=== PATIENT | female | born 1970 | race Caucasian/White ===

== ENCOUNTER 2016-08-21 11:04 | Emergency (ER) | payer MEDICAID, OTHER ==
[2016-08-21] MEDS ORDERED: LORazepam 2 MG/ML MDV IM ONE (11:17)
[2016-08-21] MEDS ORDERED: LORazepam 1 MG Tab PO ONE (11:26)
[2016-08-21] MEDS ORDERED: Promethazine 25 MG/ML SDV IM ONE (11:37)
[2016-08-21 11:55] VITALS: BP 191/116
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
== END 2016-08-21 12:21 | disposition home or self-care (01) ==
LOC: LL.ED 11:04
DX: F41.0 Panic disorder [episodic paroxysmal anxiety] (principal); I10 Essential (primary) hypertension; K21.9 Gastro-esophageal reflux disease without esophagitis; M19.90 Unspecified osteoarthritis, unspecified site; F32.9 Major depressive disorder, single episode, unspecified; F17.210 Nicotine dependence, cigarettes, uncomplicated; Z86.2 Personal history of diseases of the blood and blood-forming organs and certain disorders involving the immune mechanism; Z88.8 Allergy status to other drugs, medicaments and biological substances; Z79.899 Other long term (current) drug therapy; Z98.890 Other specified postprocedural states
CPT/HCPCS: 96372; 99283; A9270; J2060; J2550